=== PATIENT | female | born 1995 | race Caucasian/White ===

== ENCOUNTER 2018-02-02 23:36 | Emergency (ER) | payer MEDICAID ==
[~2018-02-02] VITALS: Ht 154.9 cm; Wt 46.7 kg
[2018-02-02 23:42] VITALS: BP_SYST 118
[2018-02-02 23:50] VITALS: BP_SYST 118
== END 2018-02-02 23:50 ==
LOC: SED 23:36
DX: Z02.89 Encounter for other administrative examinations (principal)
CPT/HCPCS: 99283